=== PATIENT | male | born 1960 | race Caucasian/White ===

== ENCOUNTER 2016-10-13 07:07 | Outpatient (CLI) ==
[2013-10-09 18:31] VITALS: BMI 33.5
--- NOTE | 2016-10-13 08:37 | CT ---
EXAM: CT of the head with and without contrast History: Vertigo and stroke. Technique: Multiplanar CT images through the head were obtained with and without the administration of IV contrast Findings: Minimal mucosal thickening of the ethmoid air cells. Mastoid air cells are generally shelley r. No acute calvarial abnormalities. Intracranially the ventricular and cisternal spaces are normal in size, shape and configuration for a patient of this age. No dominant mass or midline shift. No hydrocephalous. No acute intracrania l hemorrhage. 4.5 cm x 3.8 cm CSF space within the left inferior temporal region. No abnormal cont rast enhancement. Impression: 1. No acute intracranial process and no abnormal contrast enhancement. 2. CSF space within the left inferior temporal region is probably an arachnoid cyst. 3. Minimal ethmoid sinus disease.
--- NOTE | 2016-10-15 10:13 | HOLTER ---
PATIENT INFORMATION AND COMMENTS Indications: VERTIGO,SYNCOPE __ Patient Medications: NO MEDICATION LIST __ Pre-procedure Summary: Protocol: Standard Heart Rate Started: 10/13/16834 Minimum: 44 BPM Weight: Ended: 10/14/16834 Maximum: 120 BPM Height: 71" Duration: 24 HOURS Average: 75 BPM _ INTERPRETATIONS/OBSERVATIONS: 1. BASIC RHYTHM: SINUS, RATE 45 TO 120/BPM, AVERAGE 75/BPM 2. PVC'S--FREQUENT--SOME INTERPOLATED, SOME IN THE FORM OF BIGEMINY. TOTAL OF 15% TO 20% OF BEATS SCANNED 3. FEW/RARE PAC'S 4. NO ST-T WAVE CHANGES FROM BASELINE 5. ACTIVITY LOG NOT MAINTAINED MTDD
== END 2016-10-13 07:08 | disposition home or self-care (01) ==
LOC: RAD 07:07
PROVIDERS: ATTEND Family Medicine
DX: R42 Dizziness and giddiness (principal); R55 Syncope and collapse

== ENCOUNTER 2017-01-19 07:53 | Day surgery (SDC) | payer OTHER ==
[2013-10-09 18:31] VITALS: BMI 33.5
[2017-01-19] MEDS ORDERED: DIPRIVAN 20 ML VIAL IVP ONE (09:55)
[2017-01-19] MEDS ORDERED: VERSED ONE (09:55)
[2017-01-19 15:14] VITALS: BP 126/87; TEMP 97.8
--- NOTE | 2017-01-20 07:34 | OP ---
PROCEDURE: COLONOSCOPY TO THE CECUM ENDOSCOPIST: George PEPE M.D. INDICATION: HISTORY OF POLYPS INSTRUMENT: PCFH-[id number]. MEDICATION: PER ANESTHESIA. DATE OF LAST COLONOSCOPY: 2011 PROCEDURE: The patient had undergone prior attempt with a poor prep. Today he was successful with the prep. The colonoscope was inserted through the anus and advanced to the cecum without difficulty. The prep with adequate with thick stool noted which was irrigated and suctioned for an adequate exam. The only abnormality noted on this exam was diverticuli in the left colon. The retroflex exam was normal. Withdraw time was 9 minutes and 40 seconds. PLAN: 1. Suggest repeat colonoscopy in 5 years for surveillance. CC: Dr. Jacob REECE
== END 2017-01-19 11:10 | disposition home or self-care (01) ==
LOC: SURG 07:53
PROVIDERS: ATTEND Internal Medicine Gastroenterology
DX: Z09 Encounter for follow-up examination after completed treatment for conditions other than malignant neoplasm (principal); Z86.010 Personal history of colon polyps; K57.30 Diverticulosis of large intestine without perforation or abscess without bleeding

== ENCOUNTER 2021-03-05 15:09 | Inpatient (IN) ==
--- NOTE | 2021-03-05 18:47 | CT ---
EXAM: CT of the soft tissue neck without contrast History: Foreign body. Comparison: Head CT 10/13/2016 Technique: Multiplanar CT images through the neck were obtained without the administration of IV con trast Findings: Orbits are intact. No acute osseous abnormalities. The visualized paranasal sinuses and mastoid air cells are clear. Epiglottis is not thickened. No prevertebral soft tissue swelling. Th e visualized intracranial contents demonstrate a stable prominent CSF space within the left temporal region is probably an arachnoid cyst. The parotid glands and submandibular glands are unremarkable. No thyroid nodules are identified by C T. Visualized upper lungs are clear. No pathologically enlarged lymph nodes. No peritonsillar infl ammation. No radiopaque foreign bodies. Impression: 1. No radiopaque foreign bodies. 2. No acute finding within the soft tissue neck All CT scans are performed using dose optimization techniques as appropriate to the performed exam an d include at least one of the following: Automated exposure control, adjustment of the mA and/or kV according t o size, and the use of iterative reconstruction technique.
--- NOTE | 2021-03-05 19:09 | ED.PDOC ---
General <BARRY CRAWFORD DO - Last Filed: 03/06/21 10:55> ED Provider: Dr. BARRY CRAWFORD Chief Complaint: Sore Throat Stated Complaint: Has a sensation of a foreign object stuck in back of throat - Rt side-tongue; onset 3 weeks Had been eating a piece of crawfish Feels a bump on back of tongue Indicated when attempting to scrape the area with his fingernail managed to remove thick material such as food particles Also believes he had a popcorn husk that he managed to dislodge Time Seen by Provider: 03/05/21 21:24 Mode of Arrival: Walk-In Information Source: Patient Exam Limitations: Language barrier (hard of hearing) Primary Care Provider: BUD ROCK Sepsis Protocol: For patient's 13 years and over: Temp is 96.8 and below OR 101 and greater Pulse >90 BPM Resp >20/minute Acutely Altered Mental Status Are patient's symptoms suggestive of a new infection, such as: -Pneumonia -Skin, Soft Tissue -Endocarditis -UTI -Bone, Joint Infection -Implantable Device -Acute Abdominal Infection -Wound Infection -Meningitis -Blood Stream Catheter Infection -Unknown <ROSMERY HERNANDEZ MD - Last Filed: 03/05/21 23:05> Nursing and Triage Documentation Reviewed and Agree: Yes Does patient meet sepsis criteria?: No System Inflammatory Response Syndrome: Not Applicable EENT Complaint Exam <BARRY CRAWFORD DO - Last Filed: 03/06/21 10:55> Dental/Oral Complaint/Exam Mechanism of Injury: Unknown Onset/Duration: Earlier today Symptoms Are: Still present Initial Severity: Moderate Current Severity: Moderate Location: Rt Glossopharyngeal region Character: Reports Sharp Aggravating: Reports Chewing Alleviating: Reports None Associated Signs and Symptoms: Denies Swelling, Discharge, Fever, Foul odor or Foul taste in mouth Related History: Denies Similar episode Cardiac Risk Factors: Reports Hypertension Dental/Oral Surgical History: Reports None Cervical Lymphadenopathy Present: No Facial Swelling Present: No Bleeding Present: No Oropharynx Findings: Absent Clots or Active bleeding Septal Hematoma: No Foreign Body Present: No Dysphagia Present: No Drooling Present: Yes Asymmetrical Tonsillar Swelling Present: No Uvula Midline: Yes Minnie-tonsillar Fluctuence: No Trismus Present: No Palatal Petechiae Present: No Scarlatinaform Rash Present: No Differential Diagnoses: Other (Rt Posterior lat tongue papilla-no observable foreign object. patient managed to dislodge foot particles /husk with his fingernail) Review of Systems <BARRY CRAWFORD DO - Last Filed: 03/06/21 10:55> Review Of Systems Eyes: Reports No symptoms <ROSMERY HERNANDEZ MD - Last Filed: 03/05/21 23:05> Review Of Systems Constitutional: Reports No symptoms Ears, Nose, Mouth, Throat: Reports Other (Foreign body sensation on the mouth.) Respiratory: Reports No symptoms Cardiac: Reports No symptoms GI: Reports No symptoms : Reports No symptoms Musculoskeletal: Reports No symptoms Neurological: Reports Headache Endocrine: Reports No symptoms Hematologic/Lymphatic: Reports No symptoms All Other Systems: Reviewed and Negative PFSH <BARRY CRAWFORD DO - Last Filed: 03/06/21 10:55> Medical History (Updated 03/06/21 @ 08:17 by JUANCARLOS MIRANDA, RN) CAD (coronary artery disease) Hearing impaired History of DE (myocardial infarction) HTN (hypertension) Hyperlipidemia Family History FATHER Heart attack Mother Diabetes Social History (Updated 03/06/21 @ 00:32 by KRISTEN HAUSER RN) Smoking and tobacco status: Former smoker Alcohol intake: current Alcohol intake frequency: a few times a week Surgical History History of coronary artery stent placement History of hernia repair History of repair of ACL <ROSMERY HERNANDEZ MD - Last Filed: 03/05/21 23:05> Physical Exam Appearance: Reports Ill-appearing Ill-appearing: Moderate Pain Distress: Mild (Headache) Eyes: Reports OSCAR and EOMI ENT: Reports Oropharynx normal Neck: Supple Respiratory: Reports Airway patent and Breath sounds clear Cardiovascular: Reports RRR and Pulses normal GI/: Reports Not Examined Musculoskeletal: Reports Normal strength, ROM intact and No edema Skin: Reports Warm and Dry Neurological: Reports Motor intact, Alert, Oriented and Other (Hard of hearing.) Psychiatric: Reports Anxious <ROSMERY HERNANDEZ MD - Last Filed: 03/05/21 23:05> Radiology Interpretation Radiology Interpretation By: Radiologist Radiology Results: Negative Exam Interpreted: CT Scan (head ) <ROSMERY HERNANDEZ MD - Last Filed: 03/05/21 23:05> Re-Evaluation Time of Re-Evaluation: 22:30 Status: Unchanged Vital Signs Stable: No (blood pressure still elevated) Pain Level: blood pressure still elevated Physician Notification <BARRY CRAWFORD DO - Last Filed: 03/06/21 10:55> Case Discussed Physician Notified: Dr Hernandez Time of Notification: 20:09 <ROSMERY HERNANDEZ MD - Last Filed: 03/05/21 23:05> Case Discussed Physician Notified: Azalia Time of Notification: 22:50 (ok to admit to floor with Cardine drip under Dr Rock. Check Cardica enzymes and ct head.) <ROSMERY HERNANDEZ MD - Last Filed: 03/05/21 23:05> Critical Care Note Total Critical Care Time (mins): 40 Course <BARRY CRAWFORD DO - Last Filed: 03/06/21 10:55> Course Hematology/Chemistry: 03/06/21 04:45 03/06/21 04:45 Orders, Labs, Meds: Orders Category Date Time Status CT SOFT TISSUE NECK W/O CONTR Stat RADS 03/05/21 18:20 Completed Vital Signs: Temp Pulse Resp BP Pulse Ox 03/05/21 15:09 97.4 F L 88 20 211/120 H 96 <ROSMERY HERNANDEZ MD - Last Filed: 03/05/21 23:05> Course Orders, Labs, Meds: Orders Category Date Time Status CT SOFT TISSUE NECK W/O CONTR Stat RADS 03/05/21 18:20 Completed Vital Signs: Temp Pulse Resp BP Pulse Ox 03/05/21 15:09 97.4 F L 88 20 211/120 H 96 Discharge Plan Discharge Patient Disposition: ADMITTED INPATIENT Discharge Problem: Hypertensive urgency, Foreign body in throat ED Provider: BARRY CRAWFORD Condition: Fair <BARRY CRAWFORD DO - Last Filed: 03/06/21 10:55> Physician Progress Note: []Patient fairly anxious upon initial evaluation in ER due to his presenting complaint. Indicated initially BP not usually so elevated. [place] physical symptoms resulting in Elevated BP. Once patients throat symptoms improved, BP remained elevated. Therapy administered. Discussed with . Has previoulsy seen Dr Rock for his BP Hypertension (Cardio) <BARRY CRAWFORD DO - Last Filed: 03/06/21 10:55> Patient stated BP fluctuant. Indicated is elevated due to poorly fitting CPAP at home-also has headache chronically for several month due to his CPAP Machine. Stated Dr Rock monitoring his BP Type of visit: initial evaluation Onset: >1 year Current neurological symptoms: Reports headache(s) Orthostatic: No Current cardiovascular symptom: reports dizziness; denies chest pain, dyspnea, dyspnea on exertion, palpitations, fatigue or other Current endocrine symptoms: Denies diaphoretic episodes, myalgias, constipation, cold intolerance, weight gain, skin change or other Current renal disease symptoms: denies fatigue Most Recent Cardiac Tests: Chest X-Ray 02/23/13 Holter Monitor 10/15/16 Monitoring BP monitoring: health professional BP comorbidities: ASCVD BP control: unsatisfactory BP target: less than 130/80 Medication compliance: poor
[2021-03-05] MEDS ORDERED: CATAPRES PO STA (19:47)
[2021-03-05] MEDS ORDERED: TRANDATE IVP STA (20:27)
[2021-03-05] MEDS ORDERED: VASOTEC IV IVP ONE (20:27)
[2021-03-05 20:29] LABS: BASOPHILS % (AUTO) 0.4 % (0.0-3.0); EOSINOPHILS # (AUTO) 0.3 K/ul (0.0-0.7); EOSINOPHILS % (AUTO) 2.5 % (0.0-7.0); HEMATOCRIT 42.4 % (42.0-52.0); HEMOGLOBIN 14.6 g/dl (14.0-18.0); IMMATURE GRANULOCYTE # (AUTO) 0.1 (0.0-1.0); IMMATURE GRANULOCYTE % (AUTO) 0.5 % (0.0-5.0); LYMPHOCYTES # (AUTO) 2.7 K/uL (0.60-3.4); LYMPHOCYTES % (AUTO) 26.6 (10.0-50.0); MEAN CORPUSCULAR HEMOGLOBIN 31.3 pg (27.0-31.0); MEAN CORPUSCULAR HGB CONC 34.4 (31.8-35.4); MEAN CORPUSCULAR VOLUME 90.8 fl (80.0-94.0); MONOCYTES # (AUTO) 0.7 K/uL (0.4-2.0); MONOCYTES % (AUTO) 7.2 (0-10); NEUTROPHILS # (AUTO) 6.4 K/ul (2.0-6.9); NEUTROPHILS % (AUTO) 62.8 % (42.2-75.2); PLATELET COUNT 229 10^3/uL (140-440); RDW COEFFICIENT OF VARIATION 12.1 % (11.6-14.8); RED BLOOD COUNT 4.67 10^6/ul (4.70-6.10); WHITE BLOOD COUNT 10.13 K/ul (4.2-10.2)
[2021-03-05 20:41] LABS: ALANINE AMINOTRANSFERASE 24.1 U/L (0-50); ALBUMIN 4.79 g/dL (3.5-5.0); ALKALINE PHOSPHATASE 77.7 U/L (56-119); ASPARTATE AMINO TRANSFERASE 27.6 U/L (17-59); BILIRUBIN,TOTAL 0.69 mg/dL (0.2-1.3); BLOOD UREA NITROGEN 16.2 mg/dL (9-20); CALCIUM 9.19 mg/dL (8.4-10.2); CARBON DIOXIDE 28.1 mmol/L (22-30.0); CHLORIDE 103.4 mmol/L (98-107); CREATININE 1.02 mg/dL (0.60-1.10); POTASSIUM 4.13 mmol/L (3.5-5.1); SODIUM 138.4 mmol/L (134.5-145); TOTAL PROTEIN 8.35 g/dL (6.3-8.2)
[2021-03-05 22:42] LABS: CREATINE KINASE 86.3 U/L (55-170)
[2021-03-05] MEDS ORDERED: ZOFRAN 4 MG/2 ML IVP PRN (22:50)
[2021-03-05 22:52] LABS: BORDETELLA PARAPERTUSSIS (PCR) NOT DETECTED (NOT DETECT); BORDETELLA PERTUSSIS (PCR) NOT DETECTED (NOT DETECT); CHLAMYDIA PNEUMONIAE (PCR) NOT DETECTED (NOT DETECT); CORONAVIRUS 229E (PCR) NOT DETECTED (NOT DETECT); CORONAVIRUS HKU1 (PCR) NOT DETECTED (NOT DETECT); CORONAVIRUS NL63 (PCR) NOT DETECTED (NOT DETECT); CORONAVIRUS OC43 (PCR) NOT DETECTED (NOT DETECT); HUMAN METAPNEUMOVIRUS (PCR) NOT DETECTED (NOT DETECT); INFLUENZA B (PCR) NOT DETECTED (NOT DETECT); MYCOPLASMA PNEUMONIAE (PCR) NOT DETECTED (NOT DETECT); PARAINFLUENZA VIRUS 1 (PCR) NOT DETECTED (NOT DETECT); PARAINFLUENZA VIRUS 2 (PCR) NOT DETECTED (NOT DETECT); PARAINFLUENZA VIRUS 3 (PCR) NOT DETECTED (NOT DETECT); PARAINFLUENZA VIRUS 4 (PCR) NOT DETECTED (NOT DETECT); RESPIRATORY SYNCYTIAL V (PCR) NOT DETECTED (NOT DETECT); SARS_COV_2 (PCR) NOT DETECTED (NOT DETECT)
[2021-03-05 22:55] LABS: TROPONIN I < 0.012 ng/ml (0.0000-0.120)
[2021-03-05] MEDS ORDERED: CARDENE 20 MG/200 ML NACL 20 MG/200 ML BAG IV SCH (23:00)
--- NOTE | 2021-03-05 23:08 | CT ---
EXAM: CT brain without contrast HISTORY: Dizziness TECHNIQUE: CT of the brain without intravenous contrast. FINDINGS: There is no acute hemorrhage midline shift or mass effect. Left middle cranial fossa arac hnoid cyst stable from 10/13/2016. Chronic microvascular change of the periventricular white matter, minimal. The bony cranium appears normal. The visualized paranasal sinuses are clear. Soft tissues without significant abnormality. IMPRESSION: 1. Chronic changes as described. No acute intracranial abnormality is seen. All CT scans are performed using dose optimization techniques as appropriate to the performed exam an d include at least one of the following: Automated exposure control, adjustment of the mA and/or kV according t o size, and the use of iterative reconstruction technique.
[2021-03-05 23:40] LABS: ADENOVIRUS (PCR) NOT DETECTED (NOT DETECT); HUMAN RHINOVIRUS/ENTEROV (PCR) DETECTED (NOT DETECT)
[2021-03-06 00:23] VITALS: BMI 33.5
[2021-03-06] MEDS: TYLENOL PO PRN ×3 (00:33→13:36)
[2021-03-06] MEDS: SODIUM CHLORIDE 1,000 ML IV SCH ×2 (00:49→13:42)
[2021-03-06] MEDS ORDERED: BENADRYL PO PRN (01:20)
[2021-03-06 05:15] LABS: BASOPHILS % (AUTO) 0.5 % (0.0-3.0); EOSINOPHILS # (AUTO) 0.3 K/ul (0.0-0.7); EOSINOPHILS % (AUTO) 3.2 % (0.0-7.0); HEMOGLOBIN 13.8 g/dl (14.0-18.0); IMMATURE GRANULOCYTE % (AUTO) 0.5 % (0.0-5.0); LYMPHOCYTES # (AUTO) 2.1 K/uL (0.60-3.4); LYMPHOCYTES % (AUTO) 25.9 (10.0-50.0); MEAN CORPUSCULAR HEMOGLOBIN 30.9 pg (27.0-31.0); MEAN CORPUSCULAR HGB CONC 33.7 (31.8-35.4); MEAN CORPUSCULAR VOLUME 91.9 fl (80.0-94.0); MONOCYTES # (AUTO) 0.7 K/uL (0.4-2.0); MONOCYTES % (AUTO) 8.4 (0-10); NEUTROPHILS % (AUTO) 61.5 % (42.2-75.2); PLATELET COUNT 210 10^3/uL (140-440); RDW COEFFICIENT OF VARIATION 12.3 % (11.6-14.8); RED BLOOD COUNT 4.46 10^6/ul (4.70-6.10); WHITE BLOOD COUNT 8.19 K/ul (4.2-10.2)
[2021-03-06 05:27] LABS: CREATINE KINASE 67.8 U/L (55-170)
[2021-03-06 05:30] LABS: ALANINE AMINOTRANSFERASE 19.8 U/L (0-50); ALBUMIN 4.04 g/dL (3.5-5.0); ALKALINE PHOSPHATASE 61.9 U/L (56-119); ASPARTATE AMINO TRANSFERASE 25.7 U/L (17-59); BILIRUBIN,TOTAL 0.93 mg/dL (0.2-1.3); BLOOD UREA NITROGEN 17.7 mg/dL (9-20); CALCIUM 8.94 mg/dL (8.4-10.2); CARBON DIOXIDE 21.3 mmol/L (22-30.0); CHLORIDE 106.7 mmol/L (98-107); CREATININE 0.89 mg/dL (0.60-1.10); GLUCOSE 98.9 mg/dL (74-106); POTASSIUM 3.9 mmol/L (3.5-5.1); TOTAL PROTEIN 7.2 g/dL (6.3-8.2)
[2021-03-06 05:39] LABS: TROPONIN I < 0.012 ng/ml (0.0000-0.120)
[2021-03-06] MEDS: ASPIRIN EC PO SCH (07:58)
[2021-03-06] MEDS: CRESTOR PO SCH (08:00)
[2021-03-06] MEDS: NORVASC PO SCH (08:52)
[2021-03-06] MEDS ORDERED: SODIUM CHLORIDE 1,000 ML IV SCH (13:12)
[2021-03-06] MEDS: IMDUR PO SCH (13:36)
[2021-03-06 13:38] LABS: CREATINE KINASE 67.5 U/L (55-170)
[2021-03-06 13:51] LABS: TROPONIN I < 0.012 ng/ml (0.0000-0.120)
[2021-03-07 05:36] LABS: BASOPHILS % (AUTO) 0.3 % (0.0-3.0); EOSINOPHILS # (AUTO) 0.4 K/ul (0.0-0.7); EOSINOPHILS % (AUTO) 3.3 % (0.0-7.0); HEMATOCRIT 39.6 % (42.0-52.0); HEMOGLOBIN 13.3 g/dl (14.0-18.0); IMMATURE GRANULOCYTE # (AUTO) 0.1 (0.0-1.0); IMMATURE GRANULOCYTE % (AUTO) 0.5 % (0.0-5.0); LYMPHOCYTES # (AUTO) 2.1 K/uL (0.60-3.4); LYMPHOCYTES % (AUTO) 17.1 (10.0-50.0); MEAN CORPUSCULAR HEMOGLOBIN 31.1 pg (27.0-31.0); MEAN CORPUSCULAR HGB CONC 33.6 (31.8-35.4); MEAN CORPUSCULAR VOLUME 92.5 fl (80.0-94.0); MONOCYTES # (AUTO) 0.6 K/uL (0.4-2.0); MONOCYTES % (AUTO) 5.3 (0-10); NEUTROPHILS # (AUTO) 8.8 K/ul (2.0-6.9); NEUTROPHILS % (AUTO) 73.5 % (42.2-75.2); PLATELET COUNT 198 10^3/uL (140-440); RDW COEFFICIENT OF VARIATION 12.3 % (11.6-14.8); RED BLOOD COUNT 4.28 10^6/ul (4.70-6.10); WHITE BLOOD COUNT 11.97 K/ul (4.2-10.2)
[2021-03-07 05:49] LABS: ALBUMIN 3.87 g/dL (3.5-5.0); ALKALINE PHOSPHATASE 60.4 U/L (56-119); ASPARTATE AMINO TRANSFERASE 22.8 U/L (17-59); BILIRUBIN,TOTAL 0.67 mg/dL (0.2-1.3); BLOOD UREA NITROGEN 15.1 mg/dL (9-20); CALCIUM 8.6 mg/dL (8.4-10.2); CARBON DIOXIDE 24.7 mmol/L (22-30.0); CHLORIDE 107.7 mmol/L (98-107); CREATININE 0.92 mg/dL (0.60-1.10); GLUCOSE 94.7 mg/dL (74-106); POTASSIUM 4.11 mmol/L (3.5-5.1); SODIUM 138.5 mmol/L (134.5-145); TOTAL PROTEIN 6.74 g/dL (6.3-8.2)
[2021-03-07] MEDS: CRESTOR PO SCH (08:12)
[2021-03-07] MEDS: IMDUR PO SCH (08:12)
[2021-03-07] MEDS: NORVASC PO SCH (08:13)
[2021-03-07] MEDS: ASPIRIN EC PO SCH (08:13)
[2021-03-07] MEDS: TYLENOL PO PRN (09:02)
[2021-03-07 14:16] VITALS: BP 142/80; TEMP 98.2
== END 2021-03-07 16:30 | disposition home health service (06) | DRG 305 ==
LOC: ED 15:09 → MEDSURG A 23:50
PROVIDERS: ADMIT Family Medicine; ATTEND Family Medicine
DX: E78.5 Hyperlipidemia, unspecified; R51.9 Headache, unspecified; G47.30 Sleep apnea, unspecified; Z79.899 Other long term (current) drug therapy; H91.90 Unspecified hearing loss, unspecified ear; R42 Dizziness and giddiness; I10 Essential (primary) hypertension; Z20.822 Contact with and (suspected) exposure to COVID-19; R09.89 Other specified symptoms and signs involving the circulatory and respiratory systems; Z51.81 Encounter for therapeutic drug level monitoring; I16.0 Hypertensive urgency